=== PATIENT | female | born 1975 | race Caucasian/White ===

== ENCOUNTER 2020-11-22 12:32 | Outpatient (CLI) | payer OTHER, SELFPAY ==
--- NOTE | ~2020-11-22 | CT_ITS ---
EXAMINATION: CT abdomen pelvis w con INDICATION: Right lower quadrant and pelvic pain TECHNIQUE: Computed tomographic images of the abdomen and pelvis were obtained after the administrati on of 100 cc of Omnipaque 350 intravenous contrast. The dose-length product (DLP) was 1036.90 mGy-cm. Automated exposure control and iterative reconstruction technique were employed. COMPARISON: None available FINDINGS: Minimal dependent atelectasis is present in the lung bases. The heart size is normal. The g allbladder is surgically absent. The liver, spleen, pancreas, and adrenal glands are normal. The kidn eys are unremarkable. No pathologically enlarged abdominal or pelvic lymph nodes are identified. Ther e is no free intraperitoneal gas or evidence of bowel obstruction. An IUD is present in the uterus in expected position. Colonic diverticulosis is present without evidence of diverticulitis. The appendi x is normal. There is mild lumbar spondylosis. IMPRESSION: 1. No CT correlate for the patient's symptoms. Reviewed, dictated and finalized at location A.
== END 2020-11-22 12:33 ==
LOC: MICIMG 12:33
PROVIDERS: Visit Provider Nurse Practitioner
DX: R10.31 Right lower quadrant pain (principal)
CPT/HCPCS: 74177; Q9967

== ENCOUNTER 2021-03-09 11:02 | Emergency (ER) | payer OTHER, SELFPAY ==
[2021-03-09 11:39] VITALS: BP 123/74; PULSE 76; RESP 20; TEMP 36.6; O2SAT 100
--- NOTE | 2021-03-09 12:58 | ED.URI ---
HPI - URI/Sore Throat General Chief Complaint: Upper Respiratory Infection Stated Complaint: bodyaches/fever/chills Source: patient and RN notes reviewed Limitations: no limitations History of Present Illness HPI Narrative: The vaccinated patient, a non-smoker/nondrinker who works at [email or web address], presents with a shorter 1 day history of chills, cough, nasal congestion and myalgias with headache. This is associated with loose stools; no earache, loss of taste/smell, CP, S OB. Symptoms are mild somewhat worse at night when supine Related Data Home Medications Medication Instructions Recorded Confirmed cetirizine 10 mg disintegrating 10 mg PO DAILY 05/31/20 03/09/21 tablet esomeprazole magnesium 40 mg 40 mg PO DAILY 05/31/20 03/09/21 capsule,delayed release Allergies Allergy/AdvReac Type Severity Reaction Status Date / Time No Known Allergies Allergy Verified 03/09/21 11:37 Review of Systems Review of Systems: General/Constitutional: No weight loss,fever Eyes: N0: Redness,discharge Ears/Nose/Throat: No: Epistaxis,ear discharge Respiratory: Denies: Hemoptysis Gastrointestinal: No Vomiting, Bleeding-rectal Skin: No Lumps, eruption Neurologic: No Focal Weakness,Sz Hematologic: Denies: Petechiae/Purpura Psychiatric: No: Suicida ideationl All Other Systems: Reviewed and Negative [facility] Past Medical History Medical History Cholecystectomy planned Foot pain, right Ingrown toenail Morbid (severe) obesity due to excess calories Surgical History Surgical History History of ankle surgery Family History Family History Mother No problems noted. Sibling No problems noted. Social History Social History Tobacco type: cigarettes Second hand tobacco smoke exposure: No Smoking end date: 03/11/09 Alcohol intake: current Substance use: never Substance use type: does not use Additional occupation/education comments: [employer] Gender identity (if verbalized by the patient): Female Comments At time of signature, agree with nursing past medical, surgical, social and family history. There is no relevant family history pertinent to the presenting complaint Exam Narrative: General Appearance: Well appearing, overweight well nourished EYE: PERRLA, Conjunctiva clear Ears: Auditory canal normal, TM normal Nose: Rhinorrhea, Mucousal erythema Mouth/Throat: MM moist, Uvula midline, Pharyngeal erythema Neck: Supple, No adenopathy Respiratory: No respiratory distress, Breath sounds equal, Clear to auscultation Cardiovascular: RRR, No JVD Musculoskeletal: Non tender, Normal strength Skin: Warm, Dry Neurological: A&O x3, CN II-XII intact Psychiatric: Normal mood, Normal affect Course Vital Signs Vital signs: Vital Signs Temperature 97.9 F 03/09/21 11:39 Pulse Rate 76 03/09/21 11:39 Respiratory Rate 20 03/09/21 11:39 Blood Pressure 123/74 03/09/21 11:39 Pulse Oximetry 100 03/09/21 11:39 Temperature 97.9 F 03/09/21 11:39 Pulse Rate 76 03/09/21 11:39 Respiratory Rate 20 03/09/21 11:39 Blood Pressure 123/74 03/09/21 11:39 Pulse Oximetry 100 03/09/21 11:39 Discharge Plan Discharge Clinical Impression: Sinus headache Patient Disposition: Home, Self-Care Condition: Stable Instructions: Influenza (ED) Prescriptions: New azithromycin 250 mg tablet See Rx Instructions .ROUTE .COMPLEX Qty: 6 RF: 0 benzonatate 100 mg capsule 100 mg PO TID PRN (Reason: cough) Qty: 20 RF: 2 azelastine 137 mcg (0.1 %) aerosol,spray 137 mcg NASAL Q12H Qty: 30 RF: 0 No Action esomeprazole magnesium [Nexium] 40 mg capsule,delayed release(DR/EC) 40 mg PO DAILY RF: 0 Zyrtec 10 mg tablet,disin
== END 2021-03-09 13:05 | disposition home or self-care (01) ==
PROVIDERS: Emergency Provider Emergency Medicine; PCP Family Medicine
DX: R51.9 Headache, unspecified (principal); Z20.822 Contact with and (suspected) exposure to COVID-19; Z87.891 Personal history of nicotine dependence; E66.01 Morbid (severe) obesity due to excess calories; Z68.39 Body mass index [BMI] 39.0-39.9, adult
CPT/HCPCS: 99213; G0463

== ENCOUNTER → 2021-03-13 10:10 | Outpatient (CLI) | payer OTHER, SELFPAY ==
[2021-03-13 21:23] LABS: SARS-CoV-2 RNA PCR Negative
== END ==
PROVIDERS: PCP Family Medicine; Visit Provider Emergency Medicine
DX: R51.9 Headache, unspecified (principal); Z20.822 Contact with and (suspected) exposure to COVID-19
CPT/HCPCS: C9803; U0003; U0005

== ENCOUNTER 2021-03-15 11:42 | Outpatient (CLI) | payer OTHER, SELFPAY ==
--- NOTE | ~2021-03-15 | XR_ITS ---
XR abdomen/kub 1V DATE: 03/15/2021 12:00 INDICATION: Unspecified abdominal pain. Hematuria. TECHNIQUE: AP projection, 2 views COMPARISON: 11/22/2020 CT abdomen pelvis FINDINGS: Surgical clips, right upper quadrant, consistent with cholecystectomy. The psoas shadows are intact. No visceromegaly is evident. No significant abnormal calcification. No bowel obstruction. IUD status post cholecystectomy overlies the mid pelvis. Degenerative spurring of the lower thoracic spine. No suspicious osteolytic or osteoblastic lesions a re noted.. IMPRESSION: IUD overlies the mid pelvis. Status post cholecystectomy Reviewed, dictated and finalized at Location of IUD overlies mid pelvis Status post cholecystectomy. Reviewed, dictated and finalized at location A. OR LINUX ADMINISTRATOR
[2021-03-15 12:28] LABS: Basophils Percent Auto 0.3 % (0.2-1.2); Eosinophils Percent Auto 0.3 % (0-4.4); Hematocrit 46.2 % (37.0-47.0); Hemoglobin 15.3 g/dL (12.0-15.0); Immature Granulocyte Absolute 0.03 K/mm3 (0.00-0.031); Immature Granulocyte Percent A 0.3 % (0-0.5); Lymphocytes Absolute Auto 1.74 K/mm3 (0.9-3.2); Lymphocytes Percent Auto 15.2 % (18.3-44.2); Mean Corpuscular HGB Conc 33.1 g/dl (32-36); Mean Corpuscular Volume 84.5 fl (80-100); Mean Platelet Volume 10.1 fl (7.4-10.4); Monocytes Absolute Auto 0.7 K/mm3 (0.1-0.6); Monocytes Percent Auto 6.4 % (2.6-8.5); Neutrophils Absolute Auto 8.9 K/mm3 (1.3-6.7); Neutrophils Percent Auto 77.5 % (45.5-73.1); Platelet Count Result 290 k/mm3 (150-375); Red Blood Count 5.47 M/mm3 (4.2-5.4); Red Cell Distribution Width 13.2 % (11.5-14.5); White Blood Count 11.5 K/mm3 (4.5-10.0)
[2021-03-15 12:41] LABS: Anion Gap 8 mmol/L (8-16); Blood Urea Nitrogen 12 mg/dL (7-17); Calcium 9.7 mg/dL (8.4-10.2); Carbon Dioxide 29 mmol/L (22-30); Chloride 102 mmol/L (98-107); Estimated Glomerular Filt Rate > 60; Glucose 102 mg/dL (65-110); Potassium 4.4 mmol/L (3.4-5.0); Sodium 139 mmol/L (137-145)
== END 2021-03-15 11:43 | disposition home or self-care (01) ==
LOC: ANHIMG 11:45
PROVIDERS: PCP Family Medicine; Visit Provider Nurse Practitioner Family
DX: R10.9 Unspecified abdominal pain (principal); R31.9 Hematuria, unspecified; Z90.49 Acquired absence of other specified parts of digestive tract; Z97.5 Presence of (intrauterine) contraceptive device
CPT/HCPCS: 36415; 74018; 80048; 85025

== ENCOUNTER 2021-03-31 14:00 | Outpatient (CLI) | payer OTHER, SELFPAY ==
--- NOTE | ~2021-03-31 | CT_ITS ---
EXAMINATION: CT abdomen pelvis wo con DATE: 03/31/2021 15:01 INDICATION: Left-sided abdominal pain, microscopic hematuria TECHNIQUE: Computed tomography (CT) of the abdomen and pelvis was performed without intravenous contr ast. Automated exposure control and iterative reconstruction technique were employed. Exam dose: 114 0.80 mGy-cm total exam DLP. COMPARISON: 11/22/2020 CT abdomen pelvis with IV contrast material FINDINGS: The lung bases are clear. Normal heart size. No pericardial or pleural effusion. Status post cholecystectomy. The liver, spleen, pancreas, and adrenal glands and kidneys are unremark able on this limited noncontrast examination. No urinary tract calculus or hydroureteronephrosis. Normal caliber of the abdominal aorta. No intraperitoneal or retroperitoneal or pelvic mass lesion or adenopathy or ascites. An IUD is noted within the uterus. The urinary bladder is unremarkable. Normal appendix. There is mild diverticulosis of the sigmoid colon; no CT evidence of diverticulitis. No bowel obstruction, bowel wall thickening, pneumatosis or intraperitoneal free air. Very small fat-containing umbilical hernia. Included skeletal structures are unremarkable. IMPRESSION: Mild diverticulosis of sigmoid colon; no CT evidence of diverticulitis Normal appendix No urinary tract calculus or hydroureteronephrosis IUD within uterus Status post cholecystectomy Reviewed, dictated and finalized at Location A. Reviewed, dictated and finalized at location A. INUING EDUCATION INSTRUCTOR IMPRESSION: Mild diverticulosis of sigmoid colon; no CT evidence of diverticul itis Normal appendix No urinary tract calculus or hydroureteronephrosis IUD within uterus Status post cholecystectomy
== END 2021-03-31 14:01 | disposition home or self-care (01) ==
PROVIDERS: PCP Family Medicine; Visit Provider Nurse Practitioner Family
DX: R31.29 Other microscopic hematuria (principal); D72.829 Elevated white blood cell count, unspecified; R10.9 Unspecified abdominal pain; R71.8 Other abnormality of red blood cells; Z90.49 Acquired absence of other specified parts of digestive tract; M41.9 Scoliosis, unspecified; Z97.5 Presence of (intrauterine) contraceptive device
CPT/HCPCS: 74176

== ENCOUNTER 2021-09-13 06:58 | Outpatient (CLI) | payer OTHER, SELFPAY ==
--- NOTE | ~2021-09-13 | CT_ITS ---
EXAMINATION: CT abdomen pelvis w con DATE: 09/13/2021 07:47 INDICATION: Right lower quadrant abdominal pain. Epigastric pain. TECHNIQUE: Computed tomography (CT) of the abdomen and pelvis was performed with 100 mL Omnipaque-300 intravenous contrast. Automated exposure control and iterative reconstruction technique were employe d. The dose-length product was 1143.31 mGy-cm. COMPARISON: None FINDINGS: Lung bases are clear. Heart size is normal. No pericardial or pleural effusion. Cholecystectomy clips the gallbladder fossa. Liver, spleen, pancreas, bilateral adrenal glands and kidneys are normal. Sma ll amount of gas extends to the tip of the normal-appearing appendix beyond a small calcified appendi colith in the central appendix. No periappendiceal inflammatory stranding to suggest acute appendicit is. There are a few scattered diverticula along the descending and sigmoid colon without adjacent fro m 3 change to suggest diverticulitis. No bowel obstruction. Bladder is normal. T-shaped IUD in expect ed position within the anteverted uterus. Bilateral adnexa are unremarkable. No free intraperitoneal gas or fluid. No pathologically enlarged mild lymphadenopathy. Mild scattered degenerative skeletal c hanges. IMPRESSION: 1. Small calcified appendicolith within the normal appendix. No acute appendicitis or other acute int ra-abdominal/pelvic process. 2. IUD in expected position. Reviewed, dictated and finalized at location A. IMPRESSION: 1. Small calcified appendicolith within the normal appendix. No acute appendici tis or other acute intra-abdominal/pelvic process. 2. IUD in expected position.
== END 2021-09-13 06:59 | disposition home or self-care (01) ==
PROVIDERS: PCP Family Medicine; Visit Provider Nurse Practitioner Family
DX: R10.13 Epigastric pain (principal); R10.31 Right lower quadrant pain; R10.32 Left lower quadrant pain; Z97.5 Presence of (intrauterine) contraceptive device
CPT/HCPCS: 74177; Q9967

== ENCOUNTER 2021-09-15 08:57 | Day surgery (SDC) | payer OTHER, SELFPAY ==
[2021-09-15] VITALS (12 sets, daily range): BP systolic 123–164; BP diastolic 75–94; PULSE 63–102; RESP 10–21; TEMP 36.3–36.8; O2SAT 98–100
--- NOTE | 2021-09-15 09:23 | ED.ABDPAIN ---
HPI - Abdominal Pain General Chief Complaint: Abdominal Pain Stated Complaint: right flank pain Time Seen by Provider: 09/15/21 09:14 History of Present Illness HPI narrative: 46-year-old female presents emergency room secondary right lower quadrant abdominal pain. She began with pain approximately 1 week ago. She was seen by her primary physician on Saturday ordered a CT scan of her abdomen. CT scan at that time showed an appendicolith but no obvious signs of appendicitis. She has been seen by general surgeon Dr. Lira who based upon her CT scan findings did not feel that there was any indication for an emergent surgery. He told her I could take her appendix out but I am not sure that this was causing your pain . She has had increasing pain over the last couple days to the point she could not tolerate and came to the emergency room. She states she is had anorexia she is also been having some chills and fevers. Denies any urinary complaints. She states the pain is predominantly in the right lower quadrant but she has some radiation of pain to her right flank at times. There is no evidence of any kidney stones on her seen the scan. Related Data Home Medications Medication Instructions Recorded Confirmed cetirizine 10 mg disintegrating 10 mg PO DAILY 05/31/20 09/15/21 tablet (Zyrtec) omeprazole 10 mg capsule,delayed 10 mg PO DAILY 09/12/21 09/15/21 release Allergies Allergy/AdvReac Type Severity Reaction Status Date / Time No Known Allergies Allergy Verified 09/14/21 08:39 Review of Systems Review of Systems: CONSTITUTIONAL: Denies fever, chills, or sweats. EYES: Denies visual changes, redness, or discharge. ENT: Denies rhinorrhea, congestion, sore throat, or otalgia. CARDIOVASCULAR: Denies chest pain, palpitations, or edema. RESPIRATORY: Denies cough or dyspnea. GASTROINTESTINAL: Having abdominal pain as noted in the HPI. She has had some nausea. She has had anorexia. GENITOURINARY: Denies dysuria or hematuria. SKIN: Denies rash or itching. MUSCULOSKELETAL: Denies back pain, joint pain, or myalgia. NEUROLOGIC: Denies headache, numbness, or weakness. PSYCHIATRIC: Denies anxiety or depression. [facility] Past Medical History Medical History Back pain Cholecystectomy planned Elevated red blood cell count Elevated WBC count Foot pain, right Ingrown toenail Morbid (severe) obesity due to excess calories Surgical History Surgical History History of ankle surgery Hx laparoscopic cholecystectomy 1998 Social History Social History Smoking status: Former smoker Tobacco type: cigarettes Second hand tobacco smoke exposure: No Smoking end date: 03/11/09 Alcohol intake: current Substance use: never Substance use type: does not use Additional occupation/education comments: [employer] Gender identity (if verbalized by the patient): Female Exam Narrative: APPEARANCE: Well appearing, well-nourished. Frequently very emotional and crying. Appears to be in mild distress secondary to pain Head normocephalic and atraumatic. EYES: PERRLA/EOMI, conjunctivae very clear. NOSE: Normal with no drainage EARS:TMS clear Demetris Evans, with good light reflex. THROAT: Pharynx clear, no exudate. NECK: Supple. No adenopathy, no masses. RESPIRATORY: Airway patent, respirations nonlabored. Clear to auscultation bilaterally, no rales, rhonchi, wheezing. CARDIOVASCULAR: Regular rate and rhythm without murmurs, rubs, or gallops. ABDOMINAL: Focal tenderness noted in the right lower quadrant. No rigidity. No CVA tenderness. No masses. Musculoskeletal: Moves all extremities. Strength/ROM intact, No edema, No calf tenderness. NEURO: Alert. Cranial nerves II through XII intact. Normal gait. Good coordination. Nonfocal examination. SKIN:: Warm, dry. Normal Color PS
[2021-09-15 09:42] LABS: Appearance Urine Slightly Cloudy (Clear); Bilirubin Urine Negative (Negative); Blood Urine Negative (Negative); Color Urine Yellow (Yellow); Glucose Urine UA Negative (Negative); Ketones Urine Negative (Negative); Leukocyte Esterase Ur Negative LEU/UL (Negative); Nitrate Urine Negative (Negative); Protein Urine Negative (Negative); Specific Grav Ur 1.025 (1.001-1.035)
[2021-09-15] MEDS: SODIUM CHLORIDE 0.9% IV 1,000 ML 500 ML IV CONT (09:43)
[2021-09-15] MEDS: ONDANSETRON INJ 4 MG/2 ML VIAL IV PUSH ×2 (09:44→14:49)
[2021-09-15] MEDS: MORPHINE SULFATE (*CRX) 4 MG/ML INJ IV PUSH (09:44)
[2021-09-15 09:46] LABS: Bacteria Urine Trace /hpf; Mucus Urine Rare /lpf; RBC Urine 0-2 /hpf (0-2); Squamous Epithelial Cell Urine Many /hpf (Few)
[2021-09-15 09:47] LABS: Basophils Percent Auto 0.6 % (0.2-1.2); Eosinophils Absolute Auto 0.1 K/mm3 (0-0.3); Eosinophils Percent Auto 1.2 % (0-4.4); Hematocrit 43.6 % (37.0-47.0); Hemoglobin 14.2 g/dL (12.0-15.0); Immature Granulocyte Absolute 0.02 K/mm3 (0.00-0.031); Immature Granulocyte Percent A 0.3 % (0-0.5); Lymphocytes Percent Auto 27.4 % (18.3-44.2); Mean Corpuscular HGB Conc 32.6 g/dl (32-36); Mean Corpuscular Hemoglobin 27.9 pg (26-34); Mean Corpuscular Volume 85.7 fl (80-100); Mean Platelet Volume 9.7 fl (7.4-10.4); Monocytes Absolute Auto 0.4 K/mm3 (0.1-0.6); Monocytes Percent Auto 6.1 % (2.6-8.5); Neutrophils Absolute Auto 4.5 K/mm3 (1.3-6.7); Neutrophils Percent Auto 64.4 % (45.5-73.1); Platelet Count Result 252 k/mm3 (150-375); Red Blood Count 5.09 M/mm3 (4.2-5.4); Red Cell Distribution Width 12.9 % (11.5-14.5); White Blood Count 6.9 K/mm3 (4.5-10.0)
[2021-09-15 09:53] LABS: Add Urine Microscopic? YES
[2021-09-15 10:03] LABS: Prothrombin Time 13.2 Seconds (11.1-14.7)
[2021-09-15 10:04] LABS: Alanine Aminotransferase 14 U/L (6-35); Albumin Level 4.1 g/dL (3.5-5.1); Alkaline Phosphatase 55 U/L (38-126); Anion Gap 1 mmol/L (8-16); Aspartate Amino Transferase 17 U/L (14-36); Bilirubin,Total 0.3 mg/dL (0.2-1.3); Blood Urea Nitrogen 13 mg/dL (7-17); Calcium 8.8 mg/dL (8.4-10.2); Carbon Dioxide 33 mmol/L (22-30); Chloride 105 mmol/L (98-107); Estimated CRCL calculation 81 ml/min; Estimated Glomerular Filt Rate > 60; Glucose 90 mg/dL (65-110); Potassium 4.3 mmol/L (3.4-5.0); Sodium 139 mmol/L (137-145)
--- NOTE | 2021-09-15 12:29 | PM.SD2 ---
Same Day Admit/Disch: HPI History of Present Illness Chief complaint: right flank pain Narrative: Vicky Soriano is a 46 year old female whom I just saw in the office yesterday regarding some right-sided abdominal pain and an abnormal CT scan of the appendix. Patient had right flank and CVA pain back in March. She reports that this was due to a bad urinary tract infection and responded to antibiotics. She did not have a recurrence of this until the last part of August and 08 of September when she started noticing right flank pain again. Her history was a little confusing whether the pain was in the back going to the right lower quadrant or vice versa. Eventually it seemed that it was more in the right lower quadrant radiating to the back. She also had some history of constipation, she had stopped her MiraLax for couple of days then restarted it, then her constipation somewhat resolved but stools remained long and narrow. Her primary care provider's saw her in the office and noticed some right lower quadrant tenderness. A CT scan of the abdomen and pelvis was done on September 13, 2 days ago. This showed a small amount of gas extending to the tip of a normal appearing appendix with a small appendicolith in the central appendix. The appendix was not dilated, there was no inflammatory stranding. I explained to the patient in the office that while she does have tenderness in the right lower quadrant, the CT scan does not suggest her appendix is abnormal. Removal or of her appendix would, therefore, not necessarily relieve her pain. Patient came to the emergency room this morning as she has had increasing pain along with chills, fever and no appetite. She is having worse right lower quadrant pain that radiates to the flank. Her exam showed focal tenderness in the right lower quadrant and was clinically suggestive of acute appendicitis. Her white blood cell count is normal. She is afebrile. She does have some tachycardia of about 102 per minute. Patient is taken to surgery now for laparoscopic appendectomy. [facility] Past Medical History Medical History Back pain Cholecystectomy planned Elevated red blood cell count Elevated WBC count Foot pain, right Ingrown toenail Morbid (severe) obesity due to excess calories Surgical History Surgical History History of ankle surgery Hx laparoscopic cholecystectomy 1998 Social History Social History Smoking status: Former smoker Tobacco type: cigarettes Second hand tobacco smoke exposure: No Smoking end date: 03/11/09 Alcohol intake: current Substance use: never Substance use type: does not use Additional occupation/education comments: [employer] Gender identity (if verbalized by the patient): Female Same Day Admit/Disch: Med Pre-admit Medications Home Medications Medication Instructions Recorded Confirmed Type cetirizine 10 mg disintegrating 10 mg PO DAILY 05/31/20 09/15/21 History tablet (Zyrtec) omeprazole 10 mg capsule,delayed 10 mg PO DAILY 09/12/21 09/15/21 History release hydrocodone 5 mg-acetaminophen 325 1 - 2 tablet PO Q6H PRN pain #10 09/15/21 Rx mg tablet tabs ketorolac 10 mg tablet 10 mg PO Q6H 4 days #16 tabs 09/15/21 Rx Exam Const: General: comfortable, no acute distress, alert and awake HENMT: Head: normocephalic and atraumatic Mouth: Yes Normal oral and palatal mucosa present Eyes: Conjunctivae: conjunctivae normal Pupils: Equal, round and reactive pupils present EOM: EOMs intact bilaterally Neck: Neck: normal visual inspection, no lymphadenopathy and nontender Resp: Effort & Inspection: normal respiratory effort Auscultation: clear to auscultation bilaterally Cardio: Rate: regular rate Rhythm: regular rhythm Heart sounds: no gallops, no murmurs and no rubs GI: Inspe
--- NOTE | 2021-09-15 12:42 | WPDHPUPDATE1 ---
History and Physical Update Update Date/Time: 09/15/21 12:42 History and Physical has been reviewed, including an updated exam of the patient. There are NO changes in the patient's condition. Risks, benefits, and alternatives have been discussed and questions answered. Patient agrees to proceed with procedure.
--- NOTE | 2021-09-15 12:55 | WPDANESEPPF ---
Anes - Initial Pre Proc Eval Procedure: Operation Date: 09/15/21 13:30 Proposed Procedures p Laparoscopic Appendectomy - Jensen Lira MD Date/Time: 09/15/21 12:55 Surgeon: Jensen Lira MD Pre Op Diagnosis: right flank pain Patient Data Age: 46 Gender: F Height: 1.6 m Weight: 108.3 kg Last Vital Signs Temp 36.8 C 09/15/21 09:22 Pulse 68 09/15/21 12:33 Resp 16 09/15/21 09:22 BP 123/75 09/15/21 12:33 Pulse Ox 100 09/15/21 12:33 Allergies Allergy/AdvReac Type Severity Reaction Status Date / Time No Known Allergies Allergy Verified 09/14/21 08:39 Home Medications Medication Instructions Recorded Confirmed Type cetirizine 10 mg disintegrating 10 mg PO DAILY 05/31/20 09/15/21 History tablet (Zyrtec) omeprazole 10 mg capsule,delayed 10 mg PO DAILY 09/12/21 09/15/21 History release Laboratory Tests 09/15/21 09/15/21 09/15/21 09:30 09:30 09:30 WBC 6.9 K/mm3 K/mm3 (4.5-10.0) RBC 5.09 M/mm3 M/mm3 (4.2-5.4) Hgb 14.2 g/dL g/dL (12.0-15.0) Hct 43.6 % % (37.0-47.0) MCV 85.7 fl fl (80-100) MCH 27.9 pg pg (26-34) MCHC 32.6 g/dl g/dl (32-36) RDW 12.9 % % (11.5-14.5) Plt Count 252 k/mm3 k/mm3 (150-375) MPV 9.7 fl fl (7.4-10.4) Immature Gran % (Auto) 0.3 % % (0-0.5) Neut % (Auto) 64.4 % % (45.5-73.1) Lymph % (Auto) 27.4 % % (18.3-44.2) Tompkins % (Auto) 6.1 % % (2.6-8.5) Eos % (Auto) 1.2 % % (0-4.4) Baso % (Auto) 0.6 % % (0.2-1.2) Lymph # (Auto) 1.90 K/mm3 K/mm3 (0.9-3.2) Tompkins # (Auto) 0.4 K/mm3 K/mm3 (0.1-0.6) Eos # (Auto) 0.1 K/mm3 K/mm3 (0-0.3) Baso # (Auto) 0.0 K/mm3 K/mm3 (0.0-0.1) Abs Immat Gran (auto) 0.02 K/mm3 K/mm3 (0.00-0.031) Absolute Neuts (auto) 4.5 K/mm3 K/mm3 (1.3-6.7) Absolute Nucleated RBC 0.0 K/mm3 K/mm3 (0.0-0.012) Nucleated RBC % 0.0 % % (0.0-0.2) PT 13.2 Seconds Seconds (11.1-14.7) INR 1.0 APTT 25.0 SECONDS SECONDS (22.3-36.8) Sodium Potassium Chloride Carbon Dioxide Anion Gap BUN Creatinine Estim Creat Clear Calc Estimated GFR Glucose Calcium Total Bilirubin AST ALT Alkaline Phosphatase Total Protein Albumin Urine Color Yellow (Yellow) Urine Appearance Slightly cloudy (Clear) Urine pH 5.0 (5.0-9.0) Ur Specific Whitlash 1.025 (1.001-1.035) Urine Protein Negative mg/dL mg/dL (Negative) Urine Glucose (UA) Negative mg/dL mg/dL (Negative) Urine Ketones Negative mg/dL mg/dL (Negative) Ur Blood (Man) Negative (Negative) Urine Nitrate Negative (Negative) Urine Bilirubin Negative (Negative) Urine Urobilinogen 1.0 mg/dL mg/dL (<2.0) Leukocyte Esterase Rfl Negative JACK/UL JACK/UL (Negative) Urine RBC 0-2 /hpf /hpf (0-2) Urine WBC 4-6 /hpf H /hpf Ur Squamous Epith Cells Many /hpf H /hpf (Few) Urine Bacteria Trace /hpf /hpf Urine Mucus Rare /lpf /lpf 09/15/21 09:30 WBC RBC Hgb Hct MCV MCH MCHC RDW Plt Count MPV Immature Gran % (Auto) Neut % (Auto) Lymph % (Auto) Tompkins % (Auto) Eos % (Auto) Baso % (Auto) Lymph # (Auto) Tompkins # (Auto) Eos # (Auto) Baso # (Auto) Abs Immat Gran (auto) Absolute Neuts (auto) Absolute Nucleated RBC Nucleated RBC % PT INR APTT Sodium
[2021-09-15] MEDS: LACTATED RINGERS 1,000 ML 30 ML IV CONT ×2 (13:00→14:38)
[2021-09-15] MEDS: ceFAZolin 2 GM/D5W 50 ML 2 GM/50 ML BAG IVPB (13:42)
[2021-09-15] MEDS: BUPIVACAINE/EPINEPHRINE 0.25% 50 ML VIAL INFILTRATE (14:13)
[2021-09-15] MEDS: KETOROLAC 30 MG/ML VIAL (*BKC) IV PUSH (14:27)
--- NOTE | 2021-09-15 14:57 | P.OP_ITS ---
Procedure Note - Detailed Date of Procedure 09/15/21 Pre-op Diagnosis Right lower quadrant abdominal pain, appendicolith Post-op Diagnosis Same Procedure Performed Laparoscopic appendectomy Surgeon Jensen Lira MD Senior Application Security Consultant Dottie Ng ASSESSMENT SPECIALIST Anesthesia General and Local (0.25% bupivacaine with epinephrine) Indications Patient is a 46-year-old woman whom I saw in the office just yesterday with right flank and right lower quadrant abdominal pain. This has been going on for about a week. She was tender in the right lower quadrant. CT scan of the abdomen and pelvis had been done about 3 days ago and did not show appendicitis. It showed a central appendicoliths with air in the appendix on distal and no signs of inflammation or appendiceal thickening. Since the diagnosis was not entirely clear in the office, we agreed to see her back in a couple of weeks to recheck. Patient since then had increasing pain and came to the emergency room today. She was very uncomfortable with right lower quadrant tenderness. Her white count was normal. Due to her increasing pain and abnormal appendix on imaging, she is taken to surgery now for laparoscopic appendectomy. Findings Distal appendix was dilated but there were no signs of inflammation. Appendicolith was not clearly identified. Proximal appendix was diminutive and normal. Description of Procedure Patient was taken to surgery and induced into general anesthesia. The abdomen is prepped and draped. Trocars were placed in the usual fashion using 0.25% bupivacaine with epinephrine and applied Medical optical trocars. 5 mm camera was used. Patient was placed in Trendelenburg with the right-side elevated. There were adhesions of the right colon and distal small bowel in the right lower quadrant. I took some of these down and was then able to see the appendix. I was able to take a few more adhesions down and then elevate the appendix. I then dissected in the mesoappendix using primarily the cautery and blunt dissection. The appendiceal artery was found and was thoroughly cauterized and divided. We continued the dissection of the appendix and eventually skeletonized the appendix at its base. A Vicryl endoloop was used to ligate the appendix at its base. The appendix was then amputated just above the ligature. The mucosa of the appendiceal stump was cauterized. The appendix was placed immediately in Endo-Catch bag. It was retrieved through the 10 11 left lower quadrant trocar site. We then replaced the 10 11 trocar and reviewed the right lower quadrant. Any residual blood was suctioned away. It was irrigated and suctioned repeatedly. All looked good with no bleeding or other abnormalities to cause concern. We then used the Gurjit cone and Nadir Finn suture pass device. An 0 Vicryl was used to close the fascia at the left lower quadrant trocar site. We then evacuated CO2 and removed the trocar sleeves. Skin wounds were closed with subcuticular 4-0 Monocryl skin suture. The wounds were dressed with Exofin surgical adhesive. Patient was awakened and taken to recovery in good condition. Sponge needle counts were correct x2. Estimated Blood Loss -10.0 Drains No Packing No Pathology Yes (Appendix) Complications No immediate complications Condition Stable Disposition PACU [facility] Billing Surgery - Charge Forward: Surgery Billing (Laparoscopic appendectomy)
[2021-09-15] MEDS: diphenhydrAMINE HCl INJ 50 MG/ML VIAL 12.5 MG IV PUSH ×2 (15:13→15:22)
[2021-09-15] MEDS: fentaNYL CITRATE INJ (*CRX) 100 MCG/2 ML VIAL 25 MCG IV PUSH ×2 (16:04→16:12)
[2021-09-15] MEDS: oxyCODONE HCL (*CRX) 5 MG TAB IR PO (16:20)
== END 2021-09-15 17:02 | disposition home or self-care (01) ==
LOC: ANHED 12:30 → ANHSURGERY 12:31
PROVIDERS: Emergency Provider Emergency Medicine; PCP Family Medicine; Visit Provider Surgery
PROC: 0DTJ4ZZ Resection of Appendix, Percutaneous Endoscopic Approach (ICD-10-PCS; CPT 44970; principal; 2021-09-15 13:30)
DX: K35.80 Unspecified acute appendicitis (principal); Z87.891 Personal history of nicotine dependence; E66.01 Morbid (severe) obesity due to excess calories; Z68.41 Body mass index [BMI] 40.0-44.9, adult
CPT/HCPCS: 44970; 36415; 80053; 81001; 85025; 85610; 85730; 88304; A9270; J0330; J0690; J1100; J1200; J1885; J2250; J2270; J2405; J2704; J2710; J3010; J7030; J7120

== ENCOUNTER 2022-01-11 08:30 | Emergency (ER) | payer OTHER, SELFPAY ==
[2022-01-11 08:45] VITALS: BP 137/91; PULSE 79; RESP 16; TEMP 37; O2SAT 100
--- NOTE | 2022-01-11 09:12 | ED.GENADULT ---
HPI - General Adult General Chief complaint: Wound/Laceration Stated complaint: knot on left rib Time Seen by Provider: 01/11/22 09:06 Source: patient Mode of arrival: ambulatory Limitations: no limitations History of Present Illness HPI narrative: patient presents today complaining of a red and painful area to her left lower rib x2 days. Denies injury, bite to this area. She has been applying some topical antibiotic cream without relief. She currently rates the pain 8/10. States her PCP could get her in until next week and she wanted to come in for evaluation sooner. Related Data Home Medications Medication Instructions Recorded Confirmed cetirizine 10 mg disintegrating 10 mg PO DAILY 05/31/20 01/11/22 tablet (Zyrtec) omeprazole 10 mg capsule,delayed 10 mg PO DAILY 09/12/21 01/11/22 release Allergies Allergy/AdvReac Type Severity Reaction Status Date / Time No Known Allergies Allergy Verified 01/11/22 08:43 Review of Systems Review of Systems: CONSTITUTIONAL: Denies body aches, fever, chills, or sweats. EYES: Denies visual changes, redness, or discharge. ENT: Denies rhinorrhea, congestion, sore throat, or otalgia. CARDIOVASCULAR: Denies chest pain, palpitations, or edema. RESPIRATORY: Denies cough or dyspnea. GASTROINTESTINAL: Denies abdominal pain, nausea, vomiting, or diarrhea. GENITOURINARY: Denies dysuria or hematuria. SKIN: Denies rash, itching. + redness and pain to the left lower rib MUSCULOSKELETAL: Denies back pain, joint pain, or myalgia. NEUROLOGIC: Denies headache, numbness, tingling, or weakness. PSYCH: Denies depression or anxiety. [facility] Past Medical History Medical History Back pain Cholecystectomy planned Elevated red blood cell count Elevated WBC count Foot pain, right Ingrown toenail Morbid (severe) obesity due to excess calories Surgical History Surgical History History of ankle surgery History of laparoscopic appendectomy 09/15/2021 Hx laparoscopic cholecystectomy 1998 Social History Social History Smoking status: Former smoker Tobacco type: cigarettes Second hand tobacco smoke exposure: No Smoking end date: 03/11/09 Alcohol intake: current Substance use: never Substance use type: does not use Additional occupation/education comments: [employer] Gender identity (if verbalized by the patient): Female Comments At time of signature, I have reviewed and agree with nursing past medical, surgical, social and family history unless otherwise noted. Please see nursing chart for further information. There is no relevant family history pertinent to the presenting complaint Exam Narrative: GENERAL: Well-appearing, well-nourished, and in no acute distress. HEAD: Normocephalic, atraumatic. EYES: EOMI. No redness or drainage. Conjunctivae normal. ENT: Mucous membranes pink and moist. NECK: Normal AROM. CHEST: No respiratory distress. EXTREMITIES: Normal range of motion. No edema. SKIN: Warm, dry. Capillary refill normal. Normal skin turgor. + 3 cm round area of erythema to the left lower anterior rib area. This area is tender to palpation. No fluctuance or induration noted. No insect bite fanny or scabbing. No drainage. NEURO: No focal deficits. Alert and oriented x3. Gait steady. PSYCH: Normal affect. No signs of depression or anxiety. Course Course Level of Care: Express Care Visit Vital Signs Vital signs: Vital Signs Temperature 98.6 F 01/11/22 08:45 Pulse Rate 79 01/11/22 08:45 Respiratory Rate 16 01/11/22 08:45 Blood Pressure 137/91 H 01/11/22 08:45 Pulse Oximetry 100 01/11/22 08:45 Temperature 98.6 F 01/11/22 08:45 Pulse Rate 79 01/11/22 08:45 Respiratory Rate 16 01/11/22 08:45 Blood Pressure 137/91 H 01/11/22
== END 2022-01-11 09:23 | disposition home or self-care (01) ==
PROVIDERS: Emergency Provider Nurse Practitioner; PCP Family Medicine
DX: L03.311 Cellulitis of abdominal wall (principal); Z87.891 Personal history of nicotine dependence; E66.01 Morbid (severe) obesity due to excess calories; Z68.41 Body mass index [BMI] 40.0-44.9, adult
CPT/HCPCS: 99213; G0463

== ENCOUNTER 2022-02-14 09:39 | Emergency (ER) | payer OTHER, SELFPAY ==
[2022-02-14 09:44] VITALS: BP 141/83; PULSE 69; RESP 14; TEMP 36.6; O2SAT 99
--- NOTE | 2022-02-14 11:51 | ED.NAVMDI ---
HPI - Nausea/Vomiting/Diarrhea General Chief complaint: Nausea/Vomiting/Diarrhea Stated complaint: nausea headache Time Seen by Provider: 02/14/22 11:51 Source: patient, RN notes reviewed and old records reviewed Mode of arrival: ambulatory Limitations: no limitations History of Present Illness HPI Narrative: 46-year-old female who presents to [facility] with complaints of nausea, no vomiting and terrible headache with some body aches, reports that her head is going to explode, denies fever or sore throat. Patient has taken some ES Excedrin without relief of symptoms. Patient reports that she has not been able to eat but has been drinking water and Gatorade. Patient reports that she has been COVID vaccinated but has not had Flu shot MD elicited complaint: nausea and other (headache and body aches) Pertinent past history: other (seasonal allergies, migraines) Onset (ago): day(s) (2) Associated nausea: Yes Associated abdominal pain: No Pain scale (0-10): 7 Treatment prior to arrival: other (excedrin) Related Data Allergies Allergy/AdvReac Type Severity Reaction Status Date / Time No Known Allergies Allergy Verified 02/14/22 11:15 Review of Systems Review of Systems: CONSTITUTIONAL: Denies fever, chills, or sweats. EYES: Denies visual changes, redness, or discharge. ENT: Denies rhinorrhea, congestion, sore throat, or otalgia. CARDIOVASCULAR: Denies chest pain, palpitations, or edema. RESPIRATORY: Denies cough or dyspnea. GASTROINTESTINAL: Denies abdominal pain,positive for nausea, denies any vomiting, or diarrhea. GENITOURINARY: Denies dysuria or hematuria. SKIN: Denies rash or itching. MUSCULOSKELETAL: Denies back pain, joint pain, or myalgia. NEUROLOGIC: Reports headache and body aches, no numbness, or weakness. PSYCHIATRIC: Denies anxiety or depression. All systems reviewed & are unremarkable except as noted in HPI and below PMFSH Past Medical History Medical History Back pain Cholecystectomy planned Elevated red blood cell count Elevated WBC count Foot pain, right Ingrown toenail Morbid (severe) obesity due to excess calories Surgical History Surgical History History of ankle surgery History of laparoscopic appendectomy 09/15/2021 Hx laparoscopic cholecystectomy 1998 Social History Social History Smoking status: Former smoker Tobacco type: cigarettes Second hand tobacco smoke exposure: No Smoking end date: 03/11/09 Alcohol intake: current Substance use: never Substance use type: does not use Additional occupation/education comments: [employer] Gender identity (if verbalized by the patient): Female Comments At time of signature, agree with nursing past medical, surgical, social and family history. There is no relevant family history pertinent to the presenting complaint Exam Narrative: GENERAL: Well-appearing, well-nourished, and in no acute distress. HEAD: Normocephalic, atraumatic. EYES: PERRLA and EOMI. ENT: Nares clear, no rhinorrhea or epistaxis. Mucous membranes moist.TM's normal with good light reflex, throat pink with no lesions or exudates NECK: Supple.no lymphadenopathy CHEST: Clear to auscultation. No respiratory distress.SAO2 99% on room air HEART: Regular rate and rhythm. No murmur heard. Normal peripheral pulses. ABDOMEN: Soft, nontender, nondistended, normal active bowel sounds. nausea without vomiting or diarrhea EXTREMITIES: Normal range of motion. No edema. SKIN: Warm, dry, no rash. NEURO: No focal deficits. Alert and oriented x3. Course Course Emergency Course: Patient is aware of diagnosis, understands and agrees to treatment plan.? Anticipatory guidance given.? Patient agrees to follow-up as directed and is aware of reasons to seek care at the emergency department. Portions of this record may have been create
== END 2022-02-14 13:00 | disposition home or self-care (01) ==
PROVIDERS: Emergency Provider Registered Nurse; PCP Family Medicine
DX: B34.9 Viral infection, unspecified (principal); Z20.822 Contact with and (suspected) exposure to COVID-19; Z87.891 Personal history of nicotine dependence; E66.01 Morbid (severe) obesity due to excess calories; Z68.28 Body mass index [BMI] 28.0-28.9, adult
CPT/HCPCS: 87426; 87804; 99213; C9803; G0463

== ENCOUNTER 2022-05-17 13:34 | Emergency (ER) | payer OTHER, SELFPAY ==
--- NOTE | 2022-05-17 13:41 | ED.HA ---
HPI - Headache General Chief Complaint: Upper Respiratory Infection Stated Complaint: Headache Time Seen by Provider: 05/17/22 13:54 Source: patient and RN notes reviewed Mode of arrival: ambulatory Limitations: no limitations History of Present Illness HPI Narrative: 46-year-old female presents concern for headache, nasal congestion, sinus pain and pressure that started yesterday. She reports slight sore throat. She denies cough, shortness of breath. Reports chills. Denies fever, sweats. Reports she has been taking pseudoephedrine without relief. MD elicited complaint: headache Related Data Allergies Allergy/AdvReac Type Severity Reaction Status Date / Time No Known Allergies Allergy Verified 05/17/22 13:44 Review of Systems Review of Systems: CONSTITUTIONAL: Reports malaise, chills. Denies sweats, or fever. EYES: Denies visual changes, redness, or discharge. ENT: Reports rhinorrhea, congestion, sinus pain, otalgia and sore throat. CARDIOVASCULAR: Denies chest pain, palpitations, or edema. RESPIRATORY: Denies cough. Denies dyspnea. GASTROINTESTINAL: Denies abdominal pain, nausea, vomiting, diarrhea SKIN: Denies rash or itching. MUSCULOSKELETAL: Denies myalgia. NEUROLOGIC: Reports headache. All systems reviewed & are unremarkable except as noted in HPI and below PMFSH Past Medical History Medical History Back pain Cholecystectomy planned Elevated red blood cell count Elevated WBC count Foot pain, right Ingrown toenail Morbid (severe) obesity due to excess calories Surgical History Surgical History History of ankle surgery History of laparoscopic appendectomy 09/15/2021 Hx laparoscopic cholecystectomy 1998 Social History Social History Smoking status: Former smoker Tobacco type: cigarettes Second hand tobacco smoke exposure: No Smoking end date: 03/11/09 Alcohol intake: current Substance use: never Substance use type: does not use Living arrangements: alone Occupation/Education: occupation Additional occupation/education comments: [employer] Gender identity (if verbalized by the patient): Female Comments At time of signature, agree with nursing past medical, surgical, social and family history. There is no relevant family history pertinent to the presenting complaint Exam Narrative: GENERAL: Well-appearing, well-nourished, and in no acute distress. HEAD: Normocephalic EYES: PERRLA, conjunctivae clear ENT: Nares clear, turbinates edematous and erythematous, clear discharge. Mucous membranes moist. TM pearly hightower with dull light reflex bilaterally; no tragal tenderness. Oropharynx not erythematous without lesions. Tonsils not enlarged and without exudate, no drooling, no hoarseness, no trismus, uvula midline. NECK: Supple. No lymphadenopathy CHEST: Clear to auscultation, breath sounds equal. No wheezing, rhonchi, rales, or stridor. No respiratory distress, speaks in full sentences. HEART: Regular rate and rhythm. No murmur heard. SKIN: Warm, dry, no rash. NEURO: Alert and oriented x3. PSYCH: Normal mood and affect Course Course Emergency Course: Patient is aware of diagnosis, understands and agrees to treatment plan. Anticipatory guidance given. Patient agrees to follow-up as directed and is aware of reasons to seek care at the emergency department. Portions of this record may have been created with voice recognition software Level of Care: Express Care Visit Vital Signs Vital signs: Reviewed. MDM - Headache MDM Narrative Medical decision making narrative: Differential diagnosis considered: Mendosa virus, strep pharyngitis, allergic rhinitis, upper respiratory tract infection, sinusitis, rhinosinusitis, nasopharyngitis. viral pharyngitis, otitis media, otitis externa, pneumonia, bronchitis, viral cough
[2022-05-17 13:42] VITALS: BP 152/85; PULSE 77; RESP 16; TEMP 36.2; O2SAT 100
== END 2022-05-17 14:29 | disposition home or self-care (01) ==
PROVIDERS: Emergency Provider Nurse Practitioner; PCP Family Medicine
DX: J32.9 Chronic sinusitis, unspecified (principal); Z20.822 Contact with and (suspected) exposure to COVID-19; Z87.891 Personal history of nicotine dependence; E66.01 Morbid (severe) obesity due to excess calories; Z68.39 Body mass index [BMI] 39.0-39.9, adult
CPT/HCPCS: 87081; 87426; 87880; 99213; C9803; G0463

== ENCOUNTER 2022-05-31 08:01 | Emergency (ER) | payer OTHER, SELFPAY ==
--- NOTE | ~2022-05-31 | XR_ITS ---
Right Knee Technique: AP, lateral, and oblique views were obtained. Clinical History: Pain Findings: No fracture or dislocation is seen. Osseous alignment is anatomic. Sclerotic focus of the p roximal tibia is probably a bone island. Joint spaces are preserved without degenerative or erosive c hange. Soft tissues are unremarkable. No joint effusion is seen. Impression: Unremarkable right knee radiographs. Reviewed, dictated and finalized at location . Impression: Unremarkable right knee radiographs.
--- NOTE | 2022-05-31 08:10 | ED.GENADULT ---
HPI - General Adult General Chief complaint: Extremity Injury, Lower Stated complaint: Right Knee Injury Time Seen by Provider: 05/31/22 08:20 Source: patient, RN notes reviewed and old records reviewed Mode of arrival: ambulatory Limitations: no limitations History of Present Illness HPI narrative: 46 year old female who presents to [facility] care with complaints of right knee popping to back of knee for about 4 months with no known injury. Patient reports that for the past 4 days she has had increase pain to the medial aspect of her right knee next to the knee cap with no known injury. Patient reports that she is on her feet a lot at work, works at [employer]. Patient has been using ICY Hot topical ointment, Excedrin, Ibuprofen,ice and heat.Patient reports increased pain with bending and walking. MD complaint: right knee injury Location: lower extremity (right knee) Severity scale (1-10): 8 Quality: other (soreness and throbbing) Pain Consistency: constant Treatments prior to arrival: NSAID, cold therapy, heat therapy and other (Icy Hot,Excedrin) Related Data Allergies Allergy/AdvReac Type Severity Reaction Status Date / Time No Known Allergies Allergy Verified 05/31/22 08:19 Review of Systems Review of Systems: CONSTITUTIONAL: Denies fever, chills, or sweats. EYES: Denies visual changes, redness, or discharge. ENT: Denies rhinorrhea, congestion, sore throat, or otalgia. CARDIOVASCULAR: Denies chest pain, palpitations, or edema. RESPIRATORY: Denies cough or dyspnea. GASTROINTESTINAL: Denies abdominal pain, nausea, vomiting, or diarrhea. GENITOURINARY: Denies dysuria or hematuria. SKIN: Denies rash or itching. MUSCULOSKELETAL: Denies back pain,positive for right knee joint pain, or myalgia. NEUROLOGIC: Denies headache, numbness, or weakness. PSYCHIATRIC: Denies anxiety or depression. All systems reviewed & are unremarkable except as noted in HPI and below PMFSH Past Medical History Medical History Back pain Cholecystectomy planned Elevated red blood cell count Elevated WBC count Foot pain, right Ingrown toenail Morbid (severe) obesity due to excess calories Surgical History Surgical History History of ankle surgery History of laparoscopic appendectomy 09/15/2021 Hx laparoscopic cholecystectomy 1998 Social History Social History Smoking status: Former smoker Tobacco type: cigarettes Second hand tobacco smoke exposure: No Smoking end date: 03/11/09 Alcohol intake: current Substance use: never Substance use type: does not use Lack of Transportation: YES Lack of Food: Never True Current Housing: I Have Housing Concerned About Future Housing: No Difficulty Paying Gas/Electric Bills: No Difficulty Paying for Meds: No Currently Unemployed: No Education: High School Diploma/GED Difficulty w/ Childcare or Family Care: No Living arrangements: alone Occupation/Education: occupation Additional occupation/education comments: [employer] Gender identity (if verbalized by the patient): Female Comments At time of signature, agree with nursing past medical, surgical, social and family history. There is no relevant family history pertinent to the presenting complaint Exam Narrative: GENERAL: Well-appearing, well-nourished, and in no acute distress. HEAD: Normocephalic, atraumatic. EYES: PERRLA and EOMI. ENT: Nares clear, no rhinorrhea or epistaxis. Mucous membranes moist.TM's normal with good light reflex, throat pink with no swelling NECK: Supple.no lymphadenopathy CHEST: Clear to auscultation. No respiratory distress. SAO2 99% on room air HEART: Regular rate and rhythm. No murmur heard. Normal peripheral pulses. ABDOMEN: Soft, nontender, nondistended, normal active bowel sounds. EXTREMITIES: Normal range of motion. No e
[2022-05-31 08:15] VITALS: BP 121/72; PULSE 75; RESP 18; TEMP 36.4; O2SAT 99
== END 2022-05-31 09:03 | disposition home or self-care (01) ==
PROVIDERS: Emergency Provider Registered Nurse; PCP Family Medicine
DX: M25.561 Pain in right knee (principal); Z87.891 Personal history of nicotine dependence; E66.01 Morbid (severe) obesity due to excess calories; Z68.41 Body mass index [BMI] 40.0-44.9, adult
CPT/HCPCS: 73564; 99213; G0463

== ENCOUNTER → 2022-06-05 16:13 | Outpatient (CLI) | payer OTHER, SELFPAY ==
--- NOTE | ~2022-06-05 | MM_ITS ---
EXAMINATION: MM screening cassia BI w sarah HISTORY: Screening TECHNIQUE: Craniocaudal and mediolateral oblique 3-D tomosynthesis images were obtained and synthetic 2-D images were generated. CAD analysis was submitted and interpreted. COMPARISON: Comparison to multiple prior studies sequentially, with oldest reviewed study dated 09/2016. BREAST PARENCHYMAL COMPOSITION: Breast composed of scattered areas of fibroglandular density FINDINGS: There is no evidence of suspicious mass, calcification, or architectural distortion to sugg est malignancy in either breast. There has been no suspicious interval change. IMPRESSION: 1. No mammographic evidence of malignancy. 2. Recommend routine screening mammography in one year. BI-RADS Category 1: Negative Reviewed, dictated and finalized at location A.
== END ==
PROVIDERS: PCP Family Medicine; Visit Provider Advanced Practice Midwife
DX: Z12.31 Encounter for screening mammogram for malignant neoplasm of breast (principal)
CPT/HCPCS: 77063; 77067

== ENCOUNTER 2022-08-23 14:36 | Emergency (ER) | payer OTHER, SELFPAY ==
[2022-08-23 14:48] VITALS: BP 113/83; PULSE 85; RESP 16; TEMP 36.6; O2SAT 99
--- NOTE | 2022-08-23 15:31 | ED.URI ---
HPI - URI/Sore Throat General Chief Complaint: Upper Respiratory Infection Stated Complaint: sore throat,ears cloggeed,chills Time Seen by Provider: 08/23/22 15:22 Source: patient and RN notes reviewed Mode of arrival: ambulatory Limitations: no limitations History of Present Illness HPI Narrative: Patient presents today complaining of a 3 day history of sore throat, postnasal drip, mild cough, nasal congestion, shortness of breath with exertion after doing yard work and burning brush. She takes Zyrtec daily and has tried some Sudafed PE without relief. History of hypertension. Related Data Allergies Allergy/AdvReac Type Severity Reaction Status Date / Time No Known Allergies Allergy Verified 08/23/22 14:49 Review of Systems Review of Systems: CONSTITUTIONAL: Denies body aches, fever, chills, or sweats. EYES: Denies visual changes, redness, or discharge. ENT: Denies rhinorrhea, or otalgia.+ congestion, sore throat, postnasal drip CARDIOVASCULAR: Denies chest pain, palpitations, or edema. RESPIRATORY: + cough, shortness of breath with exertion GASTROINTESTINAL: Denies abdominal pain, nausea, vomiting, or diarrhea. GENITOURINARY: Denies dysuria or hematuria. SKIN: Denies rash, itching, or wounds. MUSCULOSKELETAL: Denies back pain, joint pain, or myalgia. NEUROLOGIC: Denies headache, numbness, tingling, or weakness. PSYCH: Denies depression or anxiety. [facility] Past Medical History Medical History Back pain Cholecystectomy planned Elevated red blood cell count Elevated WBC count Foot pain, right Ingrown toenail Morbid (severe) obesity due to excess calories Surgical History Surgical History History of ankle surgery History of laparoscopic appendectomy 09/15/2021 Hx laparoscopic cholecystectomy 1998 Social History Social History Smoking status: Former smoker Tobacco type: cigarettes Second hand tobacco smoke exposure: No Smoking end date: 03/11/09 Alcohol intake: current Substance use: never Substance use type: does not use Lack of Transportation: No Lack of Food: Never True Current Housing: I Have Housing Concerned About Future Housing: No Difficulty Paying Gas/Electric Bills: No Difficulty Paying for Meds: No Currently Unemployed: No Education: High School Diploma/GED Difficulty w/ Childcare or Family Care: No Living arrangements: with family Occupation/Education: occupation Additional occupation/education comments: Al/[employer] Gender identity (if verbalized by the patient): Female Spiritual care concerns: No Comments At time of signature, I have reviewed and agree with nursing past medical, surgical, social and family history unless otherwise noted. Please see nursing chart for further information. There is no relevant family history pertinent to the presenting complaint Exam Narrative: GENERAL: Mildly ill-appearing, well-nourished, and in no acute distress. HEAD: Normocephalic, atraumatic. EYES: EOMI. No redness or drainage. Conjunctivae normal. ENT: Mucous membranes pink and moist. Nares congested. No rhinorrhea. TMs normal bilaterally. Throat normal. Uvula midline. NECK: Normal AROM. Supple. No lymphadenopathy. CHEST: No respiratory distress. Clear to auscultation. HEART: Regular rate and rhythm. No murmur appreciated. Normal peripheral pulses. EXTREMITIES: Normal range of motion. No edema. SKIN: Warm, dry, no rash. Capillary refill normal. Normal skin turgor. NEURO: No focal deficits. Alert and oriented x3. Gait steady. PSYCH: Normal affect. No signs of depression or anxiety. Course Course Level of Care: Express Care Visit Vital Signs Vital signs: Vital Signs Temperature 97.8 F 08/23/22 14:48 Pulse Rate 85 08/23/22 14:48 Respiratory
== END 2022-08-23 15:43 | disposition home or self-care (01) ==
PROVIDERS: Emergency Provider Nurse Practitioner; PCP Family Medicine
DX: J30.2 Other seasonal allergic rhinitis (principal); Z87.891 Personal history of nicotine dependence; E66.01 Morbid (severe) obesity due to excess calories; Z68.41 Body mass index [BMI] 40.0-44.9, adult
CPT/HCPCS: 87081; 87880; 99213; G0463

== ENCOUNTER 2022-08-27 00:40 | Day surgery (SDC) | payer OTHER, SELFPAY ==
[2022-08-15 13:53] VITALS: BMI 42.5
--- NOTE | 2022-08-24 15:48 | PM.HPGS ---
History of Present Illness History of Present Illness Consent: Risks, benefits, and alternatives have been discussed and questions answered. Patient agrees to proceed with procedure. Chief complaint: neoplasm screening Narrative: Vicky Toure is a 46 year old female Referred for colon cancer screening. Review of Systems Review of Systems: All systems reviewed & are unremarkable except as noted in HPI and below PMFSH Past Medical History Medical History Back pain Cholecystectomy planned Elevated red blood cell count Elevated WBC count Foot pain, right Ingrown toenail Morbid (severe) obesity due to excess calories Surgical History Surgical History History of ankle surgery History of laparoscopic appendectomy 09/15/2021 Hx laparoscopic cholecystectomy 1998 Social History Social History Smoking status: Former smoker Tobacco type: cigarettes Second hand tobacco smoke exposure: No Smoking end date: 03/11/09 Alcohol intake: current Substance use: never Substance use type: does not use Lack of Transportation: No Lack of Food: Never True Current Housing: I Have Housing Concerned About Future Housing: No Difficulty Paying Gas/Electric Bills: No Difficulty Paying for Meds: No Currently Unemployed: No Education: High School Diploma/GED Difficulty w/ Childcare or Family Care: No Living arrangements: with family Occupation/Education: occupation Additional occupation/education comments: Al/[employer] Gender identity (if verbalized by the patient): Female Spiritual care concerns: No Meds Home Medications and Allergies Home Medications Medication Instructions Recorded Confirmed Type losartan 25 mg tablet 25 mg PO DAILY #30 tabs 05/29/22 08/27/22 Rx cetirizine 10 mg tablet (Zyrtec) 10 mg PO DAILY PRN allergy 06/11/22 08/27/22 Rx symptoms #30 tabs prednisone 50 mg tablet 50 mg PO DAILY 5 days #5 tabs 08/23/22 08/27/22 Rx Allergies Allergy/AdvReac Type Severity Reaction Status Date / Time No Known Allergies Allergy Verified 08/27/22 09:16 Exam Const: General: alert Orientation/consciousness: patient oriented x3 Resp: Auscultation: clear to auscultation bilaterally Cardio: Rhythm: regular rhythm GI: GI Palp: Yes Soft to palpation and No Tenderness to palpation present (GI) Neuro: General: patient oriented x3 Assessment and Plan Assessment and plan (1) Screen for colon cancer: Code(s): Z12.11 - Encounter for screening for malignant neoplasm of colon Status: Acute Assessment and Plan: Colonoscopy with possible biopsy or polypectomy or cautery or injection of substances.
[2022-08-27 09:18] VITALS: BP 132/85; PULSE 79; RESP 18; TEMP 35.9; O2SAT 100
[2022-08-27] MEDS: LACTATED RINGERS 1,000 ML 150 ML IV CONT (09:20)
--- NOTE | 2022-08-27 10:43 | P.PNAN_ITS ---
Anes - Initial Pre Proc Eval Procedure: Operation Date: 08/27/22 10:30 Proposed Procedures p Screening Colonoscopy - Levi Morrow MD Date/Time: 08/27/22 10:43 Surgeon: Levi Morrow MD Pre Op Diagnosis: neoplasm screening Patient Data Age: 46 Gender: F Height: 1.6 m Weight: 114.3 kg Last Vital Signs Temp 96.6 F L 08/27/22 09:18 Pulse 79 08/27/22 09:18 Resp 18 08/27/22 09:18 BP 132/85 08/27/22 09:18 Pulse Ox 100 08/27/22 09:18 O2 Del Method Room Air 08/27/22 09:18 Allergies Allergy/AdvReac Type Severity Reaction Status Date / Time No Known Allergies Allergy Verified 08/27/22 09:16 Home Medications Medication Instructions Recorded Confirmed Type losartan 25 mg tablet 25 mg PO DAILY #30 tabs 05/29/22 08/27/22 Rx cetirizine 10 mg tablet (Zyrtec) 10 mg PO DAILY PRN allergy 06/11/22 08/27/22 Rx symptoms #30 tabs prednisone 50 mg tablet 50 mg PO DAILY 5 days #5 tabs 08/23/22 08/27/22 Rx Patient hx anesthesia problems: none Family hx anesthesia problems: none Results Review: All pre-operative results and documents have been reviewed as part of the pre- operative evaluation. COUNT INCLUDES THE [facility] Past Medical History Medical History Back pain Cholecystectomy planned Elevated red blood cell count Elevated WBC count Foot pain, right Ingrown toenail Morbid (severe) obesity due to excess calories Surgical History Surgical History History of ankle surgery History of laparoscopic appendectomy 09/15/2021 Hx laparoscopic cholecystectomy 1998 Social History Social History Smoking status: Former smoker Tobacco type: cigarettes Second hand tobacco smoke exposure: No Smoking end date: 03/11/09 Alcohol intake: current Substance use: never Substance use type: does not use Lack of Transportation: No Lack of Food: Never True Current Housing: I Have Housing Concerned About Future Housing: No Difficulty Paying Gas/Electric Bills: No Difficulty Paying for Meds: No Currently Unemployed: No Education: High School Diploma/GED Difficulty w/ Childcare or Family Care: No Living arrangements: with family Occupation/Education: occupation Additional occupation/education comments: [employer] Gender identity (if verbalized by the patient): Female Spiritual care concerns: No Anes - Eval Final PreProcedure Day of Procedure 08/27/22 10:43 Patient weight: morbidly obese Heart: regular rate and rhythm Lungs: clear to auscultation Airway: Mallampati scale class II Neurological: alert and oriented Last oral intake: >/= 8 hours ASA classification: III Emergent: no Anesthetic plan: proceed Anesthesia type and monitoring: general GIVS and standard monitoring Results Review: All pre-operative results and documents have been reviewed as part of the pre- operative evaluation. Informed Consent: The patient's anesthetic plan and its attendant risks and benefits were discussed with the patient/family/POA. Questions were solicited and answers provided to the satisfaction of the patient/family/POA.
[2022-08-27 11:04] VITALS: BP 118/66; PULSE 70; RESP 20; O2SAT 95
[2022-08-27 11:14] VITALS: BP 114/68; PULSE 71; RESP 19; O2SAT 98
[2022-08-27 11:24] VITALS: BP 117/69; PULSE 70; RESP 20; O2SAT 98
== END 2022-08-27 11:35 | disposition home or self-care (01) ==
PROVIDERS: PCP Family Medicine; Visit Provider Internal Medicine Gastroenterology
PROC: 0DJD8ZZ Inspection of Lower Intestinal Tract, Via Natural or Artificial Opening Endoscopic (ICD-10-PCS; CPT 45378; principal; 2022-08-27 10:30)
DX: Z12.11 Encounter for screening for malignant neoplasm of colon (principal); K63.5 Polyp of colon; K57.30 Diverticulosis of large intestine without perforation or abscess without bleeding; E66.01 Morbid (severe) obesity due to excess calories; Z68.41 Body mass index [BMI] 40.0-44.9, adult; Z87.891 Personal history of nicotine dependence
CPT/HCPCS: 45380; 88305; J2704; J7120

== ENCOUNTER 2022-12-08 14:19 | Emergency (ER) | payer OTHER, SELFPAY ==
[2022-12-08 14:24] VITALS: BP 119/75; PULSE 98; RESP 18; TEMP 36.6; O2SAT 98
--- NOTE | 2022-12-08 14:43 | ED.URI ---
HPI - URI/Sore Throat General Chief Complaint: Upper Respiratory Infection Stated Complaint: Sinus Congestion Source: patient and RN notes reviewed Mode of arrival: ambulatory Limitations: no limitations History of Present Illness HPI Narrative: 47 y/o female presented for c/o headache and sinus congestion for 2 days. Endorses hearing is muffled bilaterally, and today she had hot/cold flashes and diarrhea. Denies cough, sob, wheezing, vomiting, or fatigue. Reports hx sinus infections and states symptoms are similar. Taking zyrtec daily, and started sudafed. Denies known sick conatcts. MD elicited complaint: cough Related Data Home Medications Medication Instructions Recorded Confirmed cetirizine 10 mg capsule (Zyrtec) 10 mg PO DAILY 12/08/22 12/08/22 cholecalciferol (vitamin D3) 10 10 mcg PO DAILY 12/08/22 12/08/22 mcg (400 unit) capsule (Vitamin D3) esomeprazole magnesium 20 mg mg 12/08/22 capsule,delayed release (Nexium) multivitamin 1 tablet PO DAILY 12/08/22 12/08/22 polydextrose 2.5 gram-vitamin B tablet PO 12/08/22 complex chewable tablet vitamin E acetate 134 mg (200 134 mg PO DAILY 12/08/22 12/08/22 unit) capsule Allergies Allergy/AdvReac Type Severity Reaction Status Date / Time No Known Allergies Allergy Verified 12/08/22 14:29 Review of Systems Review of Systems: CONSTITUTIONAL: Endorses chills, sweats, fever EYES: Denies visual changes, redness, or discharge ENT: Reports rhinorrhea, congestion, sinus pain, denies otalgia, sore throat CARDIOVASCULAR: Denies chest pain, palpitations, edema RESPIRATORY: denies cough, post nasal drainage, dyspnea GASTROINTESTINAL: Denies abdominal pain, nausea, vomiting, diarrhea SKIN: Denies rash or itching MUSCULOSKELETAL: denies myalgia NEUROLOGIC: reports headache PMFSH Past Medical History Medical History Back pain Cholecystectomy planned Elevated red blood cell count Elevated WBC count Foot pain, right Ingrown toenail Morbid (severe) obesity due to excess calories Surgical History Surgical History History of ankle surgery History of laparoscopic appendectomy 09/15/2021 Hx laparoscopic cholecystectomy 1998 Social History Social History Smoking status: Former smoker Tobacco type: cigarettes Second hand tobacco smoke exposure: No Smoking end date: 03/11/09 Alcohol intake: current Substance use: never Substance use type: does not use Lack of Transportation: No Lack of Food: Never True Current Housing: I Have Housing Concerned About Future Housing: No Difficulty Paying Gas/Electric Bills: No Difficulty Paying for Meds: No Currently Unemployed: No Education: High School Diploma/GED Difficulty w/ Childcare or Family Care: No Living arrangements: with family Occupation/Education: occupation Additional occupation/education comments: [employer] Gender identity (if verbalized by the patient): Female Spiritual care concerns: No Exam Narrative: GENERAL: mildly Ill-appearing, nontoxic no acute distress. HEAD: Normocephalic EYES: PERRLA, conjunctivae clear ENT: Mucous membranes moist. TMs pearly hightower with dull light reflex bilaterally; no tragal tenderness. Oropharynx not erythematous no drooling, no hoarseness, no trismus, uvula midline. No tripod positioning, muffled voice, soft palate or pharyngeal wall bulging NECK: Supple. No lymphadenopathy CHEST: Clear to auscultation, breath sounds equal. No wheezing, rhonchi, rales, or stridor. No respiratory distress, speaks in full sentences. HEART: Regular rate and rhythm. No murmur heard. SKIN: Warm, dry, no rash. NEURO: Alert and oriented x3. PSYCH: Normal mood and affect Course Course Emergency Course: Patient is aware of diagnosis, understands and agrees to treatment
== END 2022-12-08 15:20 | disposition home or self-care (01) ==
PROVIDERS: Emergency Provider Nurse Practitioner Family; PCP Family Medicine
DX: J06.9 Acute upper respiratory infection, unspecified (principal); Z87.891 Personal history of nicotine dependence; Z20.822 Contact with and (suspected) exposure to COVID-19
CPT/HCPCS: 87426; 99213; C9803; G0463

== ENCOUNTER 2023-01-22 15:13 | Outpatient (CLI) | payer OTHER, SELFPAY ==
--- NOTE | ~2023-01-22 | XR_ITS ---
XR knee LT 3V DATE: 01/22/2023 16:02 INDICATION: Left knee injury, pain TECHNIQUE: Baudette and standing AP and lateral views COMPARISON: None FINDINGS: Superior pole patellar enthesopathy. No fracture or dislocation or joint effusion. Joint spaces are well preserved. No radiopaque intra-ar ticular loose body or chondrocalcinosis. No periosteal reaction or bone destruction. IMPRESSION: Superior pole patellar enthesopathy Reviewed, dictated and finalized at location L. [employer] SERVICE ORGANIZATION DIRECTOR
== END 2023-01-22 15:14 ==
PROVIDERS: PCP Nurse Practitioner Family; Visit Provider Nurse Practitioner Family
DX: M25.562 Pain in left knee (principal)
CPT/HCPCS: 73562

== ENCOUNTER 2023-06-17 13:24 | Outpatient (CLI) | payer OTHER, SELFPAY | END 2023-06-17 13:25 | PROVIDERS: PCP Nurse Practitioner Family; Visit Provider Nurse Practitioner Family | DX: M79.672 Pain in left foot (principal) | CPT/HCPCS: 73630 ==

== ENCOUNTER 2023-12-18 15:52 | Outpatient (CLI) | payer OTHER, SELFPAY ==
--- NOTE | ~2023-12-18 | XR_ITS ---
Supine and upright views of the abdomen Clinical history: Constipation Findings: Bowel gas pattern is nonspecific. No evidence for obstruction or free air. No abnormal mass lesion or calcification is seen. Cholecystectomy clips noted. Osseous structures are intact. Impression: No significant abnormality is seen. Reviewed, dictated and finalized at [facility]. Impression: No significant abnormality is seen.
== END 2023-12-18 15:53 | disposition home or self-care (01) ==
PROVIDERS: PCP Nurse Practitioner Adult Health; Visit Provider Nurse Practitioner Adult Health
DX: K59.00 Constipation, unspecified (principal)
CPT/HCPCS: 74018

== ENCOUNTER 2024-11-19 08:08 | Emergency (ER) | payer OTHER, SELFPAY ==
--- NOTE | ~2024-11-19 | CT_ITS ---
EXAMINATION: CT abdomen pelvis w con DATE: 11/19/2024 09:21 INDICATION: Left lower quadrant abdominal pain TECHNIQUE: Computed tomography (CT) of the abdomen and pelvis was performed with 100 mL Omnipaque-350 intravenous contrast. Automated exposure control and iterative reconstruction technique were employed. The dose-length product was 1475.39 mGy-cm. COMPARISON: 09/13/21 FINDINGS: Lung bases are clear. Heart size normal. No pericardial or pleural effusion. Cholecystectomy clips the gallbladder fossa. Liver, pancreas, bilateral adrenal glands and kidneys are normal. Splenomegaly measuring 15.9 cm maximal length. Bladder, uterus and bilateral adnexa are unremarkable. No free intraperitoneal gas or fluid. No pathologically enlarged abdominal or pelvic lymphadenopathy. Mild degenerative skeletal changes in the spine and pelvis. IMPRESSION: 1. No acute intra-abdominal/pelvic process. 2. Nonspecific splenomegaly which could be related to body habitus. Reviewed, dictated and finalized at location A.
[2024-11-19 08:22] VITALS: O2SAT 95
[2024-11-19 08:23] VITALS: BP 136/65; O2SAT 97
[2024-11-19 08:30] VITALS: O2SAT 98
--- OUTSIDE RECORDS SUMMARY | 2024-11-19 08:30 | XMS_ITS | Clinical Summary ---
Author Organization [facility] Medical Office Building [address] Address [address] [place] [address] Care Team Providers Care Hand Edger Name Role Phone No, Physician Primary Care Provider [phone] Allergies No known active allergies Medications pseudoephedrine HCl (SUDAFED ORAL) Take by mouth Active levocetirizine (XYZAL) 5 mg tablet Take 5 mg by mouth every evening Active esomeprazole DR (NexIUM) 20 mg capsule Take 20 mg by mouth daily before breakfast Active cholecalciferol (VITAMIN D-3) 5,000 unit capsule Take 5,000 Units by mouth daily Active vitamin B complex capsule Take 1 capsule by mouth daily Active aspirin 81 mg enteric coated tablet Take 1 tablet (81 mg total) by mouth daily for 14 days 14 tablet 0 Active HYDROcodone-sampson taminophen (NORCO) 5-325 mg per tabletIndicatio ns:Pain Take 1-2 tablets every 4 hours as needed for pain 23 tablet 0 Active Additional Information Patient not taking.Reported on 03/07/2020 traMADoL (ULTRAM) 50 mg tablet Take 1-2 tablets every 4-6 hours as needed for pain. 33 tablet 0 Active Additional Information Patient not taking.Reported on 03/07/[address] (VOLTAREN) 75 mg EC tablet Take 75 mg by mouth 2 (two) times a day 0 Active Active Problems Problem Noted Date Diagnosed Date Closed fracture of right ankle 09/07/2019 Overview (09/07/2019): Added automatically from request for surgery [id number] BMI 40.0-44.9, adult 09/04/2019 Urinary tract infection in female 08/12/2019 Vitamin D deficiency 02/13/2017 Right lower quadrant abdominal pain 01/30/2017 Assessment & Plan (02/13/2017 12:46 PM MULTICULTURAL MANAGER): Suggested that she try wearing a binder, such as spanx, in case it is musculoskeletal in nature. May use OTC pain reliever of choice. Follow through with making appointment with GI. Assessment & Plan (01/30/2017 11:37 AM MULTICULTURAL MANAGER): KUB ordered, if S/Sxs worsen go to nearest Er. Urine dipstick neg. Change in bowel habits 01/30/2017 Assessment & Plan (01/30/2017 11:37 AM MULTICULTURAL MANAGER): Referred to Gi. In the meantime, trial of Miralax and Colace. May use a fleet enema today. History of colon polyps 01/30/2017 Immunizations Immunization Administration Dates Next Due Influenza, Unspecified 11/29/2018,01/20/2017 Surgical History Surgery Date Site/Laterality Comments OTHER SURGICAL HISTORY 03/11/1998 - 03/10/1999 Cholelithiasis: Cholecystectomy OTHER SURGICAL HISTORY 03/11/2010 - 03/10/2011 NORBERTO I on biopsy 12/15/10: colposcopy with biopsy GALLBLADDER SURGERY 03/11/1998 - 03/10/1999 CHOLECYSTECTOMY Medical History Medical History Date Comments Cholelithiasis 1998 Cholelithiasis Hx Other Medical 2010 NORBERTO I on biopsy 12/15/10; Outcome: NORBERTO I on biopsy; LGSIL next pap. Hx Other Medical Gall Bladder 19 99; Comments: JNS 12/14/2014 - Social History Tobacco Use Types Packs/Day Years Used Date Smoking Tobacco: Former Cigarettes Q uit: 2009 Smokeless Tobacco: Never Alcohol Use Standard Drinks/Week Comments No 0 (1 standard drink = 0.6 oz pur e alcohol) Comments No Sex and Gender Information Value Date Recorded Sex Assigned at Not on file Legal Sex Female 5:04 AM MULTICULTURAL MANAGER Gender Identity Not on file Sexual Orientation Not on file Obstetrics History Last Filed Vital Signs Vital Sign Reading Time Taken Comments Blood Pressure 128/70 03/07/2020 11:19 AM MULTICULTURAL MANAGER Pulse 78 03/07/2020 11:19 AM MULTICULTURAL MANAGER Temperature 36.6 C (97.9 F) 03/07/2020 11:19 AM MULTICULTURAL MANAGER Respiratory Rate 18 03/07/2020 11:19 AM MULTICULTURAL MANAGER Oxygen Saturation 99% 03/07/2020 11:19 AM MULTICULTURAL MANAGER Inhaled Oxygen Concentration - - Weight 120.2 kg (265 lb) 03/07/2020 11:19 AM MULTICULTURAL MANAGER Height 160 cm (5' 3) 03/07/2020 11:19 AM MULTICULTURAL MANAGER Body Mass Index 46.94 03/07/2020 11:19 AM MULTICULTURAL MANAGER Plan of Treatment Not on file Medical Devices Implanted Type Area Interactive Graphic Designer Device Identifier Shelf Expiration Date Model / Serial / Lot [employer] Ar-8827l-16 Low Profile Screws 2.7mm 16mm Modular Solid Hexalobe Lock Ankle - [id number] Implanted:Qty: 1 on 09/14/2019 by Keith Pham MD at [facility] Screw Right: Ankle [employer] AR-8827L-1 6 / / [employer] Ar-8827-18 Low Profile Screws 2.7mm 18mm Solid Shaft Foot Ankle Cortical - [id number] Implanted:Qty: 1 on 09/14/2019 by Keith Pham MD at [facility] Screw Right: Ankle [employer] AR-8827-18 / / [employer] [id number] Fibulock 3mm 130mm Fibular Right Nail Intramedullary - [id number] Implanted:Qty: 1 on 09/14/2019 by Keith Pham MD at [facility] Right: Ankle [employer] 12/09/2023 AR-8973R-3 0-130 / / [id number] [employer] Ar-8926ss Tightrope Cannulated Kit Endoscopic Instrument Stainless Steel - [id number] Implanted:Qty: 1 on 09/14/2019 by Keith Pham MD at [facility] Right: Ankle [employer] 11/09/2023 AR-8926SS / / [id number] Fibulock Implant System Implanted:Qty: 1 on 09/14/2019 by Keith Pham MD at [facility] Right: Ankle [employer] 04/10/2024 AR-8973DS / / [id number] Insurance [facility] [address] [id number] Care Teams Hand Edger Relationship Specialty Start Date End Date No, Physician PCP - General 08/12/19
[2024-11-19 08:36] VITALS: BP 174/80; PULSE 86; RESP 18; TEMP 36.4; O2SAT 99
[2024-11-19 08:43] LABS: Hematocrit 41.0 % (37.0-47.0); Hemoglobin 13.2 g/dL (12.0-15.0); Immature Granulocyte Percent A 0.4 % (0-0.5); Lymphocytes Absolute Auto 1.81 K/mm3 (0.9-3.2); Mean Corpuscular HGB Conc 32.2 g/dl (32-36); Mean Corpuscular Hemoglobin 27.4 pg (26-34); Mean Corpuscular Volume 85.2 fl (80-100); Nucleated Red Blood Cells Absolute Auto 0.000 K/mm3 (0.0-0.012); Nucleated Red Blood Cells Perc 0.0 % (0.0-0.2); Platelet Count Result 282 k/mm3 (150-375); Red Blood Count 4.81 M/mm3 (4.2-5.4); White Blood Count 7.6 K/mm3 (4.5-10.0)
[2024-11-19 08:54] LABS: INR 1.1; Partial Thromboplastin Time 23.3 Seconds (22.3-36.8); Prothrombin Time 14.2 Seconds (11.1-14.7)
[2024-11-19] MEDS: ONDANSETRON INJ 4 MG/2 ML VIAL IV PUSH (08:54)
[2024-11-19] MEDS: MORPHINE SULFATE (*CRX) 4 MG/ML INJ IV PUSH (08:54)
[2024-11-19] MEDS: SODIUM CHLORIDE 0.9% IV 1,000 ML 999 ML IV CONT (08:55)
[2024-11-19 09:00] LABS: Alanine Aminotransferase 23 U/L (6-35); Albumin Level 4.0 g/dL (3.5-5.1); Alkaline Phosphatase 66 U/L (38-126); Anion Gap 9 mmol/L (4-12); Aspartate Amino Transferase 42 U/L (14-36); Bilirubin,Total 0.5 mg/dL (0.2-1.3); Blood Urea Nitrogen 11 mg/dL (7-17); Calcium 9.2 mg/dL (8.4-10.2); Carbon Dioxide 25 mmol/L (22-30); Chloride 106 mmol/L (98-107); Estimated CRCL calculation 82 ml/min; Estimated Glomerular Filt Rate > 60; Glucose 100 mg/dL (65-110); Lipase 85 U/L (23-300); Potassium 3.9 mmol/L (3.4-5.0); Sodium 140 mmol/L (137-145); Total Protein 7.0 g/dL (6.3-8.2)
[2024-11-19 09:00] LABS: BEDSIDEPREGUCG Negative (Negative)
--- OUTSIDE RECORDS SUMMARY | 2024-11-19 09:03 | XMS_ITS | Clinical Summary ---
Author Organization [facility] Medical Office Building [address] Address [address] [place] [address] Care Team Providers Care Event Security Officer Name Role Phone No, Physician Primary Care Provider Allergies No known active allergies Medications pseudoephedrine [...] (09/07/2019): Added automatically from request for surgery [id number] BMI 40.0-44.9, adult 09/04/2019 Urinary tract infection in female 08/12/2019 Vitamin D deficiency 02/13/2017 Right lower quadrant abdominal pain 01/30/2017 Assessment & Plan (02/13/2017 12:46 PM TAXONOMY TEACHER): Suggested that she try wearing a binder, such as spanx, in case it is musculoskeletal in nature. May use OTC pain reliever of choice. Follow through with making appointment with GI. Assessment & Plan (01/30/2017 11:37 AM TAXONOMY TEACHER): KUB ordered, if S/Sxs worsen go to nearest Er. Urine dipstick neg. Change in bowel habits 01/30/2017 Assessment & Plan (01/30/2017 11:37 AM TAXONOMY TEACHER): Referred to Gi. In the meantime, trial [...] on file Legal Sex Female 5:04 AM TAXONOMY TEACHER Gender Identity Not on file Sexual Orientation Not on file Obstetrics History Last Filed Vital Signs Vital Sign Reading Time Taken Comments Blood Pressure 128/70 03/07/2020 11:19 AM TAXONOMY TEACHER Pulse 78 03/07/2020 11:19 AM TAXONOMY TEACHER Temperature 36.6 C (97.9 F) 03/07/2020 11:19 AM TAXONOMY TEACHER Respiratory Rate 18 03/07/2020 11:19 AM TAXONOMY TEACHER Oxygen Saturation 99% 03/07/2020 11:19 AM TAXONOMY TEACHER Inhaled Oxygen Concentration - - Weight 120.2 kg (265 lb) 03/07/2020 11:19 AM TAXONOMY TEACHER Height 160 cm (5' 3) 03/07/2020 11:19 AM TAXONOMY TEACHER Body Mass Index 46.94 03/07/2020 11:19 AM TAXONOMY TEACHER Plan of Treatment Not on file Medical Devices Implanted Type Area Shoeblack Device Identifier Shelf Expiration Date Model / Serial / Lot [employer] Ar-8827l-16 Low Profile Screws 2.7mm 16mm Modular Solid Hexalobe Lock Ankle - [id number] Implanted:Qty: 1 on 09/14/2019 by Keith Pham MD at [facility] Screw Right: Ankle [employer] AR-8827L-1 6 / / [employer] Ar-8827-18 Low Profile Screws 2.7mm 18mm Solid Shaft Foot Ankle Cortical - [id number] Implanted:Qty: 1 on 09/14/2019 by Keith Pham MD at [facility] Screw Right: Ankle [employer] AR-8827-18 / / [employer] [id number] Fibulock 3mm 130mm Fibular Right Nail Intramedullary - [id number] Implanted:Qty: 1 on 09/14/2019 by Keith Pham MD at [facility] Right: Ankle [employer] 12/09/2023 AR-8973R-3 0-130 / / [id number] [employer] Ar-8926ss Tightrope Cannulated Kit Endoscopic Instrument Stainless Steel - [id number] Implanted:Qty: 1 on 09/14/2019 by Keith Pham MD at [facility] Right: Ankle [employer] 11/09/2023 AR-8926SS / / [id number] Fibulock Implant System Implanted:Qty: 1 on 09/14/2019 by Keith Pham MD at [facility] Right: Ankle [employer] 04/10/2024 AR-8973DS / / [id number] Insurance [facility]/PPO Address: [address] [place] [address] [facility]O Address: [place] [address] [address] [id number] Care Teams Event Security Officer Relationship Specialty Start Date End Date No, Physician PCP - General 08/12/19
[2024-11-19 10:01] LABS: Add Urine Microscopic? YES; Appearance Urine Cloudy (Clear); Glucose Urine UA Negative (Negative); Leukocyte Esterase Ur Negative LEU/UL (Negative); Nitrate Urine Negative (Negative); Specific Grav Ur 1.024 (1.001-1.035)
--- NOTE | 2024-11-19 10:23 | ED.ABDPAIN ---
HPI - Abdominal Pain General Chief Complaint: Nausea/Vomiting/Diarrhea Stated Complaint: nausea Time Seen by Provider: 11/19/24 08:19 History of Present Illness HPI narrative: pt presents with lower abdominal pain for a week. Pt says she saw provider 3 days ago and was started on augmentin for presumed diverticulitis. Pt says getting no relief and in fact pain is worse and now nauseated. Pt denies fever or urinary symptoms Related Data Home Medications ?Medication ?Instructions ?Recorded ?Confirmed ?Last Taken ?Type cetirizine 10 mg capsule (Zyrtec) 10 mg PO DAILY 12/08/22 11/16/24 Unknown History cholecalciferol (vitamin D3) 10 10 mcg PO DAILY 12/08/22 11/16/24 Unknown History mcg (400 unit) capsule (Vitamin D3) multivitamin 1 tablet PO DAILY 12/08/22 11/16/24 Unknown History vitamin E acetate 134 mg (200 134 mg PO DAILY 12/08/22 11/16/24 Unknown History unit) capsule polyethylene glycol 3350 17 8.5 g PO DAILY 12/18/23 11/16/24 Unknown History gram/dose oral powder (Miralax) Allergies Allergy/AdvReac Type Severity Reaction Status Date / Time No Known Allergies Allergy Verified 11/19/24 08:56 Review of Systems Review of Systems: All systems reviewed & are unremarkable except as noted in HPI and below PMFSH Past Medical History Medical History (Updated 11/19/24 @ 10:51 by Sabas Flaherty III, ) Abdominal pain Rash Headache Hematuria Right lower quadrant abdominal pain Encounter for surgical aftercare following surgery on the digestive system Abnormal CT of the abdomen Lower abdominal pain Tenderness at McBurney's point Right flank pain Acute focal appendicitis Appendicitis Constipation Sinusitis Excessive flatus Back pain Elevated red blood cell count Elevated WBC count Morbid (severe) obesity due to excess calories Cholecystectomy planned Foot pain, right Ingrown toenail Surgical History Surgical History History of laparoscopic appendectomy 09/15/2021 Hx laparoscopic cholecystectomy 1998 History of ankle surgery Social History Social History Smoking status: Former smoker Tobacco type: cigarettes Second hand tobacco smoke exposure: No Smoking end date: 03/11/09 Alcohol intake: current Substance use: never Substance use type: does not use Do You Feel Safe in your Home?: Yes Lack of Transportation: No Lack of Food: Never True Current Housing: I Have Housing Concerned About Future Housing: No Difficulty Paying Gas/Electric Bills: No Difficulty Paying for Meds: No Currently Unemployed: No Education: High School Diploma/GED Difficulty w/ Childcare or Family Care: No Living arrangements: with family Occupation/Education: occupation Additional occupation/education comments: [employer] Gender identity (if verbalized by the patient): Female Spiritual care concerns: No Exam Narrative: Pt present with lower abdominal pain not improved after treatment for assumed diverticulitis with augmentin. DDx includes but no tlimited to apendicitis, UTI, constipation, appendicitis. Will get UA and labs and CT abd pelvis and treat pain and nausea. CT and labs neg. UA positiv efor epithelial cells but laso LE and WBC and bacteria. Given lower abdominal pain will treat and stop augmentin since not diverticlulitis. Const: General: healthy appearing and no acute distress Nutritional Appearance: well nourished Orientation/consciousness: patient oriented x3 Limitations: no limitations HENMT: Head: normal to inspection Mouth: Yes Normal oral and palatal mucosa present Throat: posterior oropharynx normal Neck: Neck: normal visual inspection Resp: Effort & Inspection: normal respiratory effort Auscultation: clear to auscultation bilaterally Cardio: Rate: regular rate Rhythm: regular rhythm GI: GI Palp: Yes Soft to palpation and Yes Tenderness to palpation present (GI) (lower abdomen) Auscultation: normal bowel sounds Back/Spine/Pelvis: Back: no CVA tenderness Skin: General skin exam: normal color Wounds: no wounds Neuro: General: patient oriented x3, moves all extremities and no focal motor deficits Speech: normal speech Extrem: General: normal to inspection and no clubbing, cyanosis or edema Psych: Mental Status: mental status grossly normal Affect: normal affect Attitude: cooperative Course Vital Signs Vital signs: Vital Signs Pulse Oximetry 95 11/19/24 08:22 Temperature 97.5 F L 11/19/24 08:36 Pulse Rate 86 11/19/24 08:36 Respiratory Rate 18 11/19/24 08:36 Blood Pressure 174/80 H 11/19/24 08:36 Pulse Oximetry 99 11/19/24 08:36 Oxygen Delivery Room Air 11/19/24 08:36 MDM - Abdominal Pain MDM Narrative Medical decision making narrative: Pt presents with lower abdominal pain not responding to augmentin will get labs and ct abd/pelvis. ct neg. Pt has uti. home on ceftin Differential Diagnosis Differential diagnosis: Likely abdominal pain, acute appendicitis, constipation, diverticulitis, gastroenteritis and small bowel obstruction Lab Data Attestation: I reviewed the patient's lab results. 11/19/24 08:33 11/19/24 08:33 Labs: Lab Results 11/19/24 11/19/24 Range/Units 08:33 08:55 WBC 7.6 (4.5-10.0) K/mm3 RBC 4.81 (4.2-5.4) M/mm3 Hgb 13.2 (12.0-15.0) g/dL Hct 41.0 (37.0-47.0) % MCV 85.2 (80-100) fl MCH 27.4 (26-34) pg MCHC 32.2 (32-36) g/dl RDW 13.8 (11.5-14.5) % Plt Count 282 (150-375) k/mm3 MPV 10.5 H (7.4-10.4) fl Immature Gran % (Auto) 0.4 (0-0.5) % Neut % (Auto) 67.6 (45.5-73.1) % Lymph % (Auto) 23.7 (18.3-44.2) % [place] % (Auto) 6.3 (2.6-8.5) % Eos % (Auto) 1.6 (0-4.4) % Baso % (Auto) 0.4 (0.2-1.2) % Lymph # (Auto) 1.81 (0.9-3.2) K/mm3 [place] # (Auto) 0.5 (0.1-0.6) K/mm3 Eos # (Auto) 0.1 (0-0.3) K/mm3 Baso # (Auto) 0.0 (0.0-0.1) K/mm3 Abs Immat Gran (auto) 0.03 (0.00-0.031) K/mm3 Absolute Neuts (auto) 5.2 (1.3-6.7) K/mm3 Absolute Nucleated RBC 0.000 (0.0-0.012) K/mm3 Nucleated RBC % 0.0 (0.0-0.2) % PT 14.2 (11.1-14.7) Seconds INR 1.1 APTT 23.3 (22.3-36.8) Seconds Sodium 140 (137-145) mmol/L Potassium 3.9 (3.4-5.0) mmol/L Chloride 106 (98-107) mmol/L Carbon Dioxide 25 (22-30) mmol/L Anion Gap 9 (4-12) mmol/L BUN 11 (7-17) mg/dL Creatinine 0.85 (0.7-1.0) mg/dL Estim Creat Clear Calc 82 ml/min Estimated GFR > 60 (59 - ) Glucose 100 (65-110) mg/dL Calcium 9.2 (8.4-10.2) mg/dL Total Bilirubin 0.5 (0.2-1.3) mg/dL AST 42 H (14-36) U/L ALT 23 (6-35) U/L Alkaline Phosphatase 66 (38-126) U/L Total Protein 7.0 (6.3-8.2) g/dL Albumin 4.0 (3.5-5.1) g/dL Lipase 85 (23-300) U/L Urine Color Dark yellow (Yellow) Urine Appearance Cloudy H (Clear) Urine pH 5.5 (5.0-9.0) Ur Specific [place] 1.024 (1.001-1.035) Urine Protein Negative (Negative) mg/dL Urine Glucose (UA) Negative (Negative) mg/dL Urine Ketones Trace H (Negative) mg/dL Ur Blood (Man) Negative (Negative) Urine Nitrate Negative (Negative) Urine Bilirubin Negative (Negative) Urine Urobilinogen 1.0 (<2.0) mg/dL Leukocyte Esterase Rfl Negative (Negative) JACK/UL Urine RBC 11-20 H (0-2) /hpf Urine WBC 11-20 H (0-3) /hpf Ur Squamous Epith Cells Many H (Few) /hpf Calcium Oxalate Crystal Present (None) /hpf Urine Bacteria 2+ H /hpf Urine Casts 3-5 POC Urine HCG, Qual Negative (Negative) Imaging Data Attestation: I personally reviewed and interpreted this imaging study as follows: My impression: no acute process Radiologist's impression: ITS Impressions Abdomen/Pelvis CT 11/19/24 09:25 IMPRESSION: 1. No acute intra-abdominal/pelvic process. 2. Nonspecific splenomegaly which could be related to body habitus. Discharge Plan Discharge Clinical Impression: UTI (urinary tract infection) Patient Disposition: Home Condition: Stable Instructions: Antibiotic Form, Urinary Tract Infection in Women (DC) Patient Language: Slovak Prescriptions: New cefdinir 300 mg capsule 300 mg PO Q12H Qty: 10 0RF phenazopyridine [Pyridium] 100 mg tablet 100 mg PO TID Qty: 6 0RF ondansetron 4 mg tablet,disintegrating 4 mg PO Q8H PRN (Reason: nausea and vomiting) Qty: 14 0RF No Action multivitamin [One A Day] Tablet 1 tablet PO DAILY Zyrtec 10 mg Capsule 10 mg PO DAILY cholecalciferol (vitamin D3) [Vitamin D3] 10 mcg (400 unit) Capsule 10 mcg PO DAILY vitamin E acetate 134 mg (200 unit) Capsule 134 mg PO DAILY polyethylene glycol 3350 [Miralax] 17 gram/dose powder 8.5 g PO DAILY amoxicillin-pot clavulanate 875-125 mg tablet 1 tablet PO BID 10 Days Qty: 20 0RF ondansetron HCl 4 mg tablet 4 mg PO Q6H PRN (Reason: nausea and vomiting) Qty: 30 0RF esomeprazole magnesium [Nexium] 40 mg capsule,delayed release(DR/EC) 40 mg PO DAILY Qty: 90 1RF losartan 25 mg tablet 25 mg PO DAILY Qty: 30 6RF Follow-up/Referrals: Jeremy Latif MD [Primary Care Provider, Family Practice]
== END 2024-11-19 11:07 | disposition home or self-care (01) ==
PROVIDERS: Emergency Provider Emergency Medicine; PCP Family Medicine
DX: N39.0 Urinary tract infection, site not specified (principal); Z87.891 Personal history of nicotine dependence
CPT/HCPCS: 36415; 74177; 80053; 81001; 81025; 83690; 85025; 85610; 85730; 96361; 96374; 96375; 99284; J2270; J2405; J7030; Q9967

== ENCOUNTER 2024-12-10 16:38 | Outpatient (CLI) | payer OTHER, SELFPAY ==
--- NOTE | ~2024-12-10 | XR_ITS ---
EXAMINATION: XR abdomen/kub 1V, 12/10/2024 16:41 CDT HISTORY: R39.851 - Costovertebral (angle) tenderness, right side COMPARISON: No comparisons available. Technique: 3 view. Findings: Bowel gas pattern unremarkable. No obstruction. No free air. No abnormal calcifications No acute osseous abnormality. Impression: 1. No acute abnormality. Reviewed, dictated and finalized at location P. Impression: 1. No acute abnormality.
== END 2024-12-10 16:39 | disposition home or self-care (01) ==
LOC: MICIMG 16:38
PROVIDERS: PCP Family Medicine; Visit Provider Nurse Practitioner Family
DX: R39.851 Costovertebral (angle) tenderness, right side (principal)
CPT/HCPCS: 74018